=== PATIENT | male | born 1995 | race Caucasian/White ===

== ENCOUNTER 2017-11-10 03:05 | Emergency (ER) | payer SELFPAY ==
[~2017-11-10] VITALS: Ht 182.9 cm; Wt 67.0 kg
[2017-11-10 04:44] VITALS: BP 131/81
== END 2017-11-10 05:01 | disposition home or self-care (01) ==
LOC: ER 03:05
DX: M54.2 Cervicalgia (principal); M54.89 Other dorsalgia; F17.200 Nicotine dependence, unspecified, uncomplicated; V43.52XA Car driver injured in collision with other type car in traffic accident, initial encounter; Y93.89 Activity, other specified; Y92.488 Other paved roadways as the place of occurrence of the external cause
CPT/HCPCS: 99283